=== PATIENT | female | born 1985 | race Caucasian/White ===

== ENCOUNTER 2025-06-19 17:05 | Emergency (ER) | payer SELFPAY ==
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
[2025-06-19 17:30] LABS: BASOPHIL % 0.7 % (0.1-1.2); Basophil (Absolute #) 0.06 x10^3/uL (0.01-0.08); Eosinophil (Absolute #) 0.12 x10^3/uL (0.04-0.36); Hematocrit 40.8 % (34.1-44.9); Hemoglobin 13.3 g/dL (11.2-15.7); IMMATURE GRAN # 0.02 x10^3u/L (0.001-0.031); IMMATURE GRAN % 0.2 % (0.001-0.429); Lymphocyte (Absolute #) 2.73 x10^3/uL (1.18-3.74); Mean Corpuscular Hemoglobin 33.1 pg (25.6-32.2); Mean Corpuscular Hgb Concent. 32.6 g/dL (32.2-35.5); Monocyte (Absolute #) 0.72 x10^3/uL (0.24-0.86); NUCLEATED RBC # 0.00 x10^3u/L (0.00-0.012); NUCLEATED RBC % 0.0 % (0.00-0.2); Platelet Count 345 x10^3/uL (182-369); Red Blood Count 4.02 x10^6/uL (3.93-5.22); White Blood Count 8.8 x10^3/uL (3.98-10.04)
[2025-06-19 17:37] VITALS: TEMP 99.4
[2025-06-19] MEDS ORDERED: Zofran 4 MG/2 ML VIAL ONE (17:48)
[2025-06-19] MEDS: Zofran 4 MG/2 ML VIAL IV ONE (17:50)
[2025-06-19 18:08] LABS: Calcium 9.8 mg/dL (8.4-10.2); Carbon Dioxide 22 mmol/L (22-30); Creatinine 1 0.71 mg/dL (0.52-1.04); EST GLOMERULAR FILTRATION RATE 110.9 ML/MIN; ETHYL ALCOHOL < 10 mg/dL (0-10); Glucose 139 mg/dL (74-106); Potassium 3.8 mmol/L (3.5-5.1); SGOT/AST 31 U/L (14-36); SGPT/ALT 18 U/L (0-35); Total Protein 8.7 g/dL (6.3-8.2)
[2025-06-19] MEDS ORDERED: Inapsine 5 MG/2 ML ONE (18:17)
[2025-06-19] MEDS: Inapsine 5 MG/2 ML IV ONE (18:19)
[2025-06-19 20:12] VITALS: O2SAT 97
[2025-06-19 20:21] LABS: Glucose, Urine Negative (Negative); Protein,Urine Dip Negative (Negative); RBC 0-2 /HPF (0-5)
[2025-06-19 20:45] LABS: Amphetamine,Urine NEGATIVE (NEGATIVE); Barbiturate,Urine NEGATIVE (NEGATIVE); Benzodiazepine,Urine NEGATIVE (NEGATIVE); Cocaine,Urine NEGATIVE (NEGATIVE); Methadone,Urine NEGATIVE (NEGATIVE); Opiate,Urine POSITIVE (NEGATIVE); PCP,Urine NEGATIVE (NEGATIVE); THC,Urine POSITIVE (NEGATIVE)
[2025-06-19 21:08] VITALS: BP 113/76; PULSE 75; RESP 11
--- NOTE | 2025-06-20 08:46 | XRAY ---
Indication: Pain. Comparison: None 3 view left shoulder obtained. No bony, articular, or soft tissue abnormalities.
--- NOTE | 2025-06-20 08:47 | XRAY ---
Indication: Syncopal episode. Multiple contiguous axial images obtained through the head without contrast. Comparison: None Normal appearing brain parenchyma, ventricles, and bony calvarium. Visualized paranasal sinuses and mastoid air cells are clear. Impression: Normal CT head without contrast exam.
--- NOTE | 2025-06-20 08:48 | XRAY ---
Indication: Hematuria. Flank pain. Multiple contiguous axial images obtained through the abdomen and pelvis without contrast using renal stone protocol. Comparison: None Lung bases clear. Heart not enlarged. No renal calculus or evidence for obstructive uropathy in either system. Left mid kidney demonstrates 1.5 cm exophytic cyst. Stomach is distended with food/fluid. Noncontrasted stomach and bowel loops appear nonobstructed. Previous cholecystectomy and hysterectomy. No free fluid/air. Remaining liver, pancreas, spleen, adrenal glands, kidneys, ureters, bladder, and aorta are unremarkable for noncontrast exam. Osseous structures intact with mild L4-L5 degenerative disc disease. No ventral or inguinal hernias. Impression: 1. Negative renal calculus or evidence for obstructive uropathy. 2. Incidental small left cyst and L4-L5 degenerative disc disease. 3. Otherwise negative CT abdomen/pelvis without contrast exam.
== END 2025-06-19 21:15 | disposition home or self-care (01) ==
LOC: ED 17:05
DX: R55 Syncope and collapse (principal); R51.9 Headache, unspecified; Z79.899 Other long term (current) drug therapy